=== PATIENT | female | born 2000 | race Caucasian/White ===

== ENCOUNTER 2023-04-08 15:54 | Emergency (ER) | payer BC, OTHER ==
[~2023-04-08] VITALS: Ht 160 cm; Wt 77.0 kg
[2023-04-08 15:58] VITALS: BP 159/112
[2023-04-08] MEDS ORDERED: HYDROcodone/acetaminophen 10/325mg tab PO ONE (16:10)
[2023-04-08] MEDS ORDERED: HYDR-3973 PO (17:08)
== END 2023-04-08 17:42 | disposition home or self-care (01) ==
LOC: ER 15:55
DX: S10.91XA Abrasion of unspecified part of neck, initial encounter (principal); R07.89 Other chest pain; M25.562 Pain in left knee; V98.8XXA Other specified transport accidents, initial encounter; Y93.89 Activity, other specified; Y92.89 Other specified places as the place of occurrence of the external cause; Y99.8 Other external cause status
CPT/HCPCS: 71045; 73110; 73564; 99284

== ENCOUNTER 2023-04-26 22:41 | Emergency (ER) | payer BC ==
[~2023-04-26] VITALS: Ht 160 cm; Wt 77.3 kg
[~2023-04-26 22:41] MED LIST: HYDR-3973 PO
[2023-04-26 22:47] VITALS: BP 145/89
[2023-04-26] MEDS ORDERED: NAPR-56 PO (22:48)
== END 2023-04-26 23:03 | disposition home or self-care (01) ==
LOC: ER 22:41
DX: M54.6 Pain in thoracic spine (principal); M25.562 Pain in left knee; R07.81 Pleurodynia; M25.531 Pain in right wrist; R07.89 Other chest pain
CPT/HCPCS: 99282